=== PATIENT | female | born 1985 | race Caucasian/White ===

== ENCOUNTER 2019-12-27 23:05 | Emergency (ER) | payer MEDICAID ==
[~2019-12-27] VITALS: Ht 157.5 cm; Wt 59.0 kg
[2019-12-28] VITALS: BP 113/81
[2019-12-28] MEDS ORDERED: LIDOCAINE VISCOUS 2% UD 15 ML UDC MM ONE ×2 (00:30→03:00)
[2019-12-28] MEDS ORDERED: IBUPROFEN 400 MG TABLET PO ONE (00:30)
[2019-12-28] MEDS ORDERED: MAG HYDROX/AL HYDROX/SIMETH 30 ML UDC PO ONE ×2 (00:30→03:00)
[2019-12-28] MEDS ORDERED: ONDANSETRON 4 MG TAB.RAPDIS SL ONE (00:30)
--- NOTE | 2019-12-28 00:33 | NUR ---
XRAY AT BED
[2019-12-28] MEDS ORDERED: LIDOCAINE VISCOUS 2% UD 15 ML UDC ONE ×2 (00:39→02:27)
[2019-12-28] MEDS ORDERED: MAG HYDROX/AL HYDROX/SIMETH 30 ML UDC ONE ×2 (00:39→02:27)
[2019-12-28] MEDS ORDERED: IBUPROFEN 400 MG TABLET ONE (00:39)
[2019-12-28] MEDS ORDERED: ONDANSETRON 4 MG TAB.RAPDIS ONE (00:40)
--- NOTE | 2019-12-28 00:57 | NUR ---
PATIENT IS ASKING FOR DILAUDID. MD NOTIFIED.
--- NOTE | 2019-12-28 01:10 | NUR ---
PATIENT REFUSED 2ND MAALOX AND LIDOCAINE VISCOUS. MEDICATION IS WASTED.
--- NOTE | 2019-12-28 01:36 | NUR ---
PATIENT REFUSED TO SIGN DISCHARGE PAPERWORK. AMBULATORY WITH A STEADY GAIT.
== END 2019-12-28 01:39 | disposition home or self-care (01) ==
LOC: ER 23:05
DX: S60.222A Contusion of left hand, initial encounter (principal); S60.221A Contusion of right hand, initial encounter; Z76.5 Malingerer [conscious simulation]; W23.0XXA Caught, crushed, jammed, or pinched between moving objects, initial encounter; Y93.89 Activity, other specified; Y92.89 Other specified places as the place of occurrence of the external cause; Y99.8 Other external cause status
CPT/HCPCS: 73120 ×2; 99284; Q0162